=== PATIENT | male | born 1970 | race Caucasian/White ===

== ENCOUNTER 2017-06-04 06:55 | Emergency (ER) | payer OTHER ==
[2017-06-04] MEDS ORDERED: SODIUM CHLORIDE 0.9% 1,000 ML IV ONE (07:18)
[2017-06-04] MEDS ORDERED: KETOROLAC 60 MG/2 ML VIAL IVP STA (07:18)
--- NOTE | 2017-06-04 07:20 | ED Physician Documentation ---
History of Present Illness - Stated complaint Stated Complaint: SIDE PX - Chief complaint Chief Complaint: Abd Pain - Additonal information Additional information: hx from pt 47 male hx renal colic L flank pain rad to LLQ with hematuria just like prior renal colic no fever chills no NV Review of Systems Constitutional: denies: Fever, Chills Cardiac: denies: Chest pain / pressure Respiratory: denies: Dyspnea GI: reports: Abdominal Pain (LLL rad from flank). denies: Nausea, Vomiting : reports: Hematuria Musculoskeletal: reports: Back pain (L flank) Endocrine: denies: Easy bruising / bleeding Immunocompromised: denies: Immunocompromised PD PAST MEDICAL HISTORY - Present Medications Home Medications: Ambulatory Orders Medication Instructions Recorded Confirmed Ibuprofen [Motrin] 400 mg PO Q6H PRN #30 tablet 06/04/17 Oxycodone HCl/Acetaminophen 1 each PO Q6HR PRN #10 tablet 06/04/17 [Percocet 5-325 mg Tablet] Tamsulosin [Flomax] 0.4 mg PO DAILY #7 capsule 06/04/17 rOPINIRole [Requip] 1 tab PO DAILY 06/04/17 06/04/17 - Allergies Allergies/Adverse Reactions: Allergies Allergy/AdvReac Type Severity Reaction Status Date / Time No Known Drug Allergies Allergy Verified 06/04/17 07:01 PD ED PE NORMAL - Vitals Vital signs reviewed: Yes - General General: Alert and oriented X 3 - HEENT HEENT: PERRL - Neck Neck: Supple, no meningeal sign - Cardiac Cardiac: RRR - Respiratory Respiratory: No respiratory distress, Clear bilaterally - Abdomen Abdomen: Soft, Non tender, Other (no pulsatile mass) - Back Back: No CVA TTP (palpating does not change pain) - Neuro Neuro: Alert and oriented X 3 Results - Vitals Vitals: Vital Signs - 24 hr 06/04/17 06/04/17 06:57 09:00 Temperature 36.1 C L Heart Rate 62 50 L Respiratory 18 12 Rate Blood Pressure 131/90 H 114/76 O2 Saturation 100 100 Oxygen O2 Source Room air - Labs Labs: Laboratory Tests 06/04/17 06/04/17 07:35 07:38 Sodium 136 Potassium 3.7 Chloride 103 Carbon Dioxide 27 Anion Gap 6.0 BUN 26 H Creatinine 0.9 Estimated GFR (MDRD) 91 Glucose 118 H Calcium 9.2 Urine Color YELLOW Urine Clarity HAZY Urine pH 7.0 Ur Specific [place] <=1.005 Urine Protein NEGATIVE Urine Glucose (UA) NEGATIVE Urine Ketones NEGATIVE Urine Occult Blood LARGE H Urine Nitrite NEGATIVE Urine Bilirubin NEGATIVE Urine Urobilinogen 0.2 (NORMAL) Ur Leukocyte Esterase NEGATIVE Urine RBC 11-25 H Urine WBC 0-3 Ur Squamous Epith Cells NONE SEEN Urine Bacteria Rare Ur Microscopic Review INDICATED Urine Culture Comments NOT INDICATED - Rads (name of study) KUB Radiology: See rad report (4 mm L distal ureteral stone) Departure - Departure Disposition: Home, Self Care Clinical Impression: Renal colic on left side Condition: Good Instructions: ED Stone Renal W Colic Follow-Up: FAITH WANG [Primary Care Provider] - Prescriptions: Oxycodone HCl/Acetaminophen [Percocet 5-325 mg Tablet] 1 each PO Q6HR PRN #10 tablet PRN Reason: Severe Pain Ibuprofen [Motrin] 400 mg PO Q6H PRN #30 tablet PRN Reason: Pain Tamsulosin [Flomax] 0.4 mg PO DAILY #7 capsule Comments: The urine shows blood but no infection The kidney function is fine The xray shows a 4 mm stone that is almost to the bladder It is OK for you to go home - the stone is small enough that it should pass on its own I have prescribed medication to ease the pain and help relax the ureters Please drink plenty of fluids Filter the urine so you know when the stone has passed Return if worse (fever, vomiting, cannot urinate, extreme pain etc) Forms: Activity restrictions
[2017-06-04 07:59] LABS: CALCIUM 9.2 mg/dL (8.5-10.3); CREATININE 0.9 mg/dL (0.6-1.2)
[2017-06-04 08:07] LABS: BILIRUBIN,URINE NEGATIVE (NEGATIVE); GLUCOSE, URINE (UA) NEGATIVE (NEGATIVE); KETONES,URINE (UA) NEGATIVE (NEGATIVE); LEUKOCYTE ESTERASE, URINE NEGATIVE (NEGATIVE); NITRITE,URINE NEGATIVE (NEGATIVE); OCCULT BLOOD,URINE LARGE (NEGATIVE); PROTEIN,URINE NEGATIVE (NEGATIVE); UROBILINOGEN,URINE 0.2 (NORMAL) E.U./dL (NORMAL)
[2017-06-04 08:14] LABS: CLARITY,URINE HAZY (CLEAR)
[2017-06-04 08:26] LABS: BACTERIA,URINE Rare /HPF (None Seen); SQUAMOUS EPITHELIAL CELL,UR NONE SEEN (<= Few)
--- NOTE | 2017-06-04 08:33 | XRAY Report ---
EXAM: ABDOMEN RADIOGRAPHY EXAM DATE: 06/04/2017 08:08 AM. CLINICAL HISTORY: L flank pain hx kidney stones. COMPARISON: None. TECHNIQUE: 1 view. FINDINGS: Bowel Gas Pattern: Prominent hepatic flexure stool. No dilated bowel. Other: A 4 mm left pelvic calcification is suspicious for distal ureteral stone. IMPRESSION: 1. A 4 mm left pelvic calcification is suspicious for distal ureteral stone. [facility] Referring Provider Line: [phone] SITE ID: [id number]
[2017-06-04 09:00] VITALS: BP 114/76
== END 2017-06-04 09:49 | disposition home or self-care (01) ==
LOC: ED 06:55
DX: N20.2 Calculus of kidney with calculus of ureter (principal)
CPT/HCPCS: 36415; 74018; 80048; 81001; 81003; 87086; 96360; 96361; 96374; 99283; 99284

== ENCOUNTER 2018-02-18 19:21 | Emergency (ER) | payer OTHER ==
[2018-02-18] MEDS ORDERED: ONDANSETRON 4 MG/2 ML VIAL IVP STA (21:31)
[2018-02-18] MEDS ORDERED: SODIUM CHLORIDE 0.9% 1,000 ML IV ONE (21:32)
[2018-02-18 21:37] LABS: BILIRUBIN,URINE NEGATIVE (NEGATIVE); GLUCOSE, URINE (UA) NEGATIVE (NEGATIVE); KETONES,URINE (UA) NEGATIVE (NEGATIVE); LEUKOCYTE ESTERASE, URINE NEGATIVE (NEGATIVE); NITRITE,URINE NEGATIVE (NEGATIVE); OCCULT BLOOD,URINE LARGE (NEGATIVE); PROTEIN,URINE NEGATIVE (NEGATIVE); UROBILINOGEN,URINE 1 (NORMAL) E.U./dL (NORMAL)
[2018-02-18 21:43] LABS: BASOPHILS # (AUTO) 0.1 10^3/uL (0.0-0.1); BASOPHILS % (AUTO) 0.5 %; EOSINOPHILS # (AUTO) 0.1 10^3/uL (0.0-0.7); EOSINOPHILS % (AUTO) 1.1 %; HGB - HEMOGLOBIN 14.8 g/dL (14.0-18.0); LYMPHOCYTES # (AUTO) 2.1 10^3/uL (1.5-3.5); LYMPHOCYTES % (AUTO) 16.3 %; MEAN CORPUSCULAR HEMOGLOBIN 31.9 pg (27.0-31.0); MEAN CORPUSCULAR VOLUME 88.6 fL (80.0-94.0); MEAN PLATELET VOLUME 8.2 fL (7.4-11.4); MONOCYTES # (AUTO) 1.2 10^3/uL (0.0-1.0); MONOCYTES % (AUTO) 9.7 %; NEUTROPHILS # (AUTO) 9.3 10^3/uL (1.5-6.6); NEUTROPHILS % (AUTO) 72.4 %; PLT - PLATELET COUNT 287 10^3/uL (130-450); RED BLOOD COUNT 4.63 10^6/uL (4.70-6.10); RED CELL DISTRIBUTION WIDTH 12.4 % (12.0-15.0); WHITE BLOOD COUNT 12.8 x10^3/uL (4.8-10.8)
--- NOTE | 2018-02-18 21:43 | ED Physician Documentation ---
PD HPI ABD PAIN - Stated complaint Stated Complaint: BACK & SIDE PX - Chief complaint Chief Complaint: Abd Pain - History obtained from History obtained from: Patient - History of Present Illness Timing - onset: Enter time (17:00), Today Timing - duration: Hours Timing - details: Abrupt onset, Constant, Waxing and waning Pain level now: 10 Quality: Pain Location: LUQ Radiation: Left flank Improved by: Other (nothing) Worsened by: Other (no exacerbating factors) Associated symptoms: Nausea, Vomiting. No: Diarrhea, Constipation Similar symptoms before: Diagnosis (similar to previous renal colic) Recently seen: Not recently seen Review of Systems Constitutional: reports: Sweats. denies: Fever, Chills Cardiac: reports: Reviewed and negative Respiratory: reports: Reviewed and negative GI: reports: Abdominal Pain, Nausea, Vomiting. denies: Constipation, Diarrhea : denies: Dysuria, Frequency, Hematuria Musculoskeletal: reports: Back pain PD PAST MEDICAL HISTORY - Past Medical History Past Medical History: Yes : Kidney stones - Past Surgical History Past Surgical History: No - Present Medications Home Medications: Ambulatory Orders Medication Instructions Recorded Confirmed Ibuprofen [Motrin] 400 mg PO Q6H PRN #30 tablet 06/04/17 02/18/18 Gabapentin 100 mg PO DAILY 02/18/18 02/18/18 Tamsulosin [Flomax] 0.4 mg PO DAILY #7 capsule 02/18/18 oxyCODONE/ACET 5/325 [Percocet 5 1 - 2 each PO Q6H PRN #14 tablet 02/18/18 mg/325 mg] - Allergies Allergies/Adverse Reactions: Allergies Allergy/AdvReac Type Severity Reaction Status Date / Time No Known Drug Allergies Allergy Verified 02/18/18 19:34 - Social History Does the pt smoke?: No Smoking Status: Never smoker Does the pt drink ETOH?: Yes Does the pt have substance abuse?: No PD ED PE NORMAL - Vitals Vital signs reviewed: Yes - General General: Alert and oriented X 3, Well developed/nourished, Other (obvious severe painful distress) - HEENT HEENT: Moist mucous membranes - Cardiac Cardiac: RRR, No murmur - Respiratory Respiratory: No respiratory distress, Clear bilaterally - Abdomen Abdomen: Normal bowel sounds, Soft, Non tender, Non distended - Back Back: No CVA TTP - Derm Derm: Normal color, Warm and dry Results - Vitals Vitals: Vital Signs - 24 hr 02/18/18 02/18/18 02/18/18 19:31 21:32 21:54 Temperature 36.5 C 37.2 C Heart Rate 56 L 87 71 Respiratory 17 20 18 Rate Blood Pressure 186/93 H 182/143 H 166/88 H O2 Saturation 100 93 100 02/18/18 02/19/18 22:36 00:10 Temperature Heart Rate 70 72 Respiratory 15 16 Rate Blood Pressure 138/78 H 120/74 O2 Saturation 99 95 Oxygen O2 Source Room air - Labs Labs: Laboratory Tests 02/18/18 02/18/18 02/18/18 19:45 21:30 21:30 WBC 12.8 H RBC 4.63 L Hgb 14.8 Hct 41.0 L MCV 88.6 MCH 31.9 H MCHC 36.0 RDW 12.4 Plt Count 287 MPV 8.2 Neut # (Auto) 9.3 H Lymph # (Auto) 2.1 [place] # (Auto) 1.2 H Eos # (Auto) 0.1 Baso # (Auto) 0.1 Absolute Nucleated RBC 0.01 Nucleated RBC % 0.0 Sodium 137 Potassium 3.7 Chloride 101 Carbon Dioxide 22 Anion Gap 14.0 H BUN 27 H Creatinine 1.1 Estimated GFR (MDRD) 72 L Glucose 126 H Calcium 9.9 Total Bilirubin 1.1 H AST 36 ALT 42 Alkaline Phosphatase 57 Total Protein 8.4 H Albumin 4.9 Globulin 3.5 Albumin/Globulin Ratio 1.4 Lipase 25 Urine Color YELLOW Urine Clarity CLOUDY Urine pH 7.0 Ur Specific [place] 1.020 Urine Protein NEGATIVE Urine Glucose (UA) NEGATIVE Urine Ketones NEGATIVE Urine Occult Blood LARGE H Urine Nitrite NEGATIVE Urine Bilirubin NEGATIVE Urine Urobilinogen 1 (NORMAL) Ur Leukocyte Esterase NEGATIVE Urine RBC TNTC H Urine WBC 0-3 Ur Squamous Epith Cells NONE SEEN Urine Bacteria None Seen Urine Mucus Moderate Strands Ur Microscopic Review INDICATED Urine Culture Comments NOT INDICATED - Rads (name of study) CT A/P Radiology: Prelim report reviewed, See rad report PD MEDICAL DECISION MAKING - ED course Complexity details: reviewed old records, reviewed results, re-evaluated patient, considered differential, d/w patient Departure - Departure Disposition: 01 Home, Self Care Clinical Impression: Renal colic on left side Condition: Good Instructions: ED Stone Renal W Colic Follow-Up: FAITH WANG [Primary Care Provider] - Prescriptions: oxyCODONE/ACET 5/325 [Percocet 5 mg/325 mg] 1 - 2 each PO Q6H PRN #14 tablet PRN Reason: Pain Tamsulosin [Flomax] 0.4 mg PO DAILY #7 capsule Forms: Activity restrictions Discharge Date/Time: 02/19/18 00:30
[2018-02-18 21:45] LABS: BACTERIA,URINE None Seen /HPF (None Seen); CLARITY,URINE CLOUDY (CLEAR); MUCUS,URINE Moderate Strands; RBC,URINE TNTC /HPF (0-5); SQUAMOUS EPITHELIAL CELL,UR NONE SEEN (<= Few)
[2018-02-18] MEDS ORDERED: LIDOCAINE MPF 2% IV STA (21:48)
[2018-02-18] MEDS ORDERED: SODIUM CHLORIDE 0.9% IV STA (21:48)
[2018-02-18] MEDS ORDERED: HYDROmorphone 1 MG/ML CARPUJECT IVP STA (21:48)
[2018-02-18 21:51] LABS: ALBUMIN 4.9 g/dL (3.2-5.5); ALBUMIN/GLOBULIN RATIO 1.4 (1.0-2.2); BILIRUBIN,TOTAL 1.1 mg/dL (0.2-1.0); CALCIUM 9.9 mg/dL (8.5-10.3); CREATININE 1.1 mg/dL (0.6-1.2); TOTAL PROTEIN 8.4 g/dL (6.7-8.2)
--- NOTE | 2018-02-18 23:24 | CT Report ---
Reason: left flank pain Procedure Date: 02/18/2018 Accession Number: [id number] / [id number] Procedure: CT - Abdomen/Pelvis W/O CPT Code: FULL RESULT: EXAM: CT ABDOMEN AND PELVIS (CT KUB) EXAM DATE: 02/18/2018 11:10 PM. CLINICAL HISTORY: Left flank pain. COMPARISONS: None. TECHNIQUE: Routine axial helical CT imaging was performed through the abdomen and pelvis without IV contrast. Reconstructions: Coronal and sagittal. In accordance with CT protocol optimization, one or more of the following dose reduction techniques were utilized for this exam: automated exposure control, adjustment of mA and/or KV based on patient size, or use of iterative reconstructive technique. FINDINGS: Lung Bases: Unremarkable. Right Kidney/Ureter: No stones, hydronephrosis, or hydroureter. No perinephric fat stranding. Left Kidney/Ureter: Mild left hydronephrosis and hydroureter, with a 3 mm calculus at the left ureterovesicular junction. 2 mm left upper tract calculus. Other Solid Organs: Noncontrast images of the solid organs are grossly unremarkable. Gallbladder/Bile Ducts: Unremarkable. Peritoneal Cavity: No free fluid, free air or karen adenopathy. Bowel is grossly unremarkable. The appendix is normal. Pelvic Organs: No bladder stones or wall thickening. Noncontrast images of the visualized pelvic organs are unremarkable. Vasculature: Unremarkable. Other: None. IMPRESSION: 3 mm calculus in the distal left ureter, producing mild hydronephrosis and hydroureter. 2 mm calculus in the left collecting system. [facility]
[2018-02-18] MEDS ORDERED: KETOROLAC 60 MG/2 ML VIAL IVP STA (23:57)
[2018-02-18] MEDS ORDERED: TAMSULOSIN 0.4 MG CAPSULE PO STA (23:57)
[2018-02-18] MEDS ORDERED: oxyCODONE/ACET 5/325 Prepack 4 PO STA (23:57)
[2018-02-19 00:12] VITALS: BP 120/74
== END 2018-02-19 00:30 | disposition home or self-care (01) ==
LOC: ED 19:21
DX: N13.2 Hydronephrosis with renal and ureteral calculous obstruction (principal)
CPT/HCPCS: 36415; 74176; 80053; 81001; 83690; 85025; 96361; 96365; 96375; 99283; 99284; A9270; J1170; J7040; 81003; 87086

== ENCOUNTER 2018-05-17 03:56 | Emergency (ER) | payer OTHER ==
[2018-05-17] MEDS ORDERED: KETOROLAC 15 MG/ML VIAL IVP STA (04:03)
[2018-05-17] MEDS ORDERED: ONDANSETRON 4 MG/2 ML VIAL IVP STA (04:03)
[2018-05-17] MEDS ORDERED: SODIUM CHLORIDE 0.9% 1,000 ML IV ONE (04:03)
[2018-05-17] MEDS ORDERED: HYDROmorphone 1 MG/ML CARPUJECT IM STA (04:10)
[2018-05-17] MEDS ORDERED: LORazepam 2 MG/ML VIAL IVP STA (04:10)
[2018-05-17 04:21] LABS: GLUCOSE, URINE (UA) 100 mg/dL (NEGATIVE); KETONES,URINE (UA) NEGATIVE (NEGATIVE); LEUKOCYTE ESTERASE, URINE NEGATIVE (NEGATIVE); NITRITE,URINE POSITIVE (NEGATIVE); OCCULT BLOOD,URINE LARGE (NEGATIVE); PH,URINE 6.5 PH (5.0-7.5); PROTEIN,URINE >=300 mg/dL (NEGATIVE); UROBILINOGEN,URINE 2 E.U./dL (NORMAL)
[2018-05-17 04:23] LABS: BILIRUBIN,URINE NEGATIVE (NEGATIVE); CLARITY,URINE CLEAR (CLEAR); ICTOTEST,URINE NEGATIVE
[2018-05-17] MEDS ORDERED: HYDROmorphone 1 MG/ML CARPUJECT IVP STA (04:26)
[2018-05-17 04:27] LABS: BASOPHILS # (AUTO) 0.1 10^3/uL (0.0-0.1); BASOPHILS % (AUTO) 0.5 %; EOSINOPHILS # (AUTO) 0.2 10^3/uL (0.0-0.7); EOSINOPHILS % (AUTO) 1.5 %; HGB - HEMOGLOBIN 15.4 g/dL (14.0-18.0); LYMPHOCYTES # (AUTO) 3.8 10^3/uL (1.5-3.5); MEAN CORPUSCULAR HEMOGLOBIN 31.5 pg (27.0-31.0); MEAN CORPUSCULAR HGB CONC 34.5 g/dL (32.0-36.0); MEAN CORPUSCULAR VOLUME 91.5 fL (80.0-94.0); MEAN PLATELET VOLUME 7.6 fL (7.4-11.4); MONOCYTES # (AUTO) 1.3 10^3/uL (0.0-1.0); MONOCYTES % (AUTO) 10.7 %; NEUTROPHILS # (AUTO) 6.6 10^3/uL (1.5-6.6); NEUTROPHILS % (AUTO) 55.3 %; PLT - PLATELET COUNT 288 10^3/uL (130-450); RED BLOOD COUNT 4.87 10^6/uL (4.70-6.10); RED CELL DISTRIBUTION WIDTH 12.1 % (12.0-15.0); WHITE BLOOD COUNT 11.9 x10^3/uL (4.8-10.8)
[2018-05-17 04:30] LABS: BACTERIA,URINE None Seen /HPF (None Seen); SQUAMOUS EPITHELIAL CELL,UR NONE SEEN (<= Few)
[2018-05-17 04:36] LABS: ALBUMIN 4.6 g/dL (3.2-5.5); ALBUMIN/GLOBULIN RATIO 1.4 (1.0-2.2); BILIRUBIN,TOTAL 0.9 mg/dL (0.2-1.0); CALCIUM 9.2 mg/dL (8.5-10.3); CREATININE 1.1 mg/dL (0.6-1.2)
--- NOTE | 2018-05-17 04:56 | CT Report ---
Reason: left flank pain Procedure Date: 05/17/2018 Accession Number: [id number] / [id number] Procedure: CT - KUB CPT Code: FULL RESULT: EXAM: CT ABDOMEN AND PELVIS (CT KUB) EXAM DATE: 05/17/2018 04:47 AM. CLINICAL HISTORY: Left flank pain. COMPARISONS: ABDOMEN/PELVIS W/O 02/18/2018 11:02 PM. TECHNIQUE: Routine axial helical CT imaging was performed through the abdomen and pelvis without IV contrast. Reconstructions: Coronal and sagittal. In accordance with CT protocol optimization, one or more of the following dose reduction techniques were utilized for this exam: automated exposure control, adjustment of mA and/or KV based on patient size, or use of iterative reconstructive technique. FINDINGS: Lung Bases: Trace effusions. Right Kidney/Ureter: Tiny nonobstructing stone. No ureteral stones, hydronephrosis, or hydroureter. No perinephric fat stranding. Left Kidney/Ureter: Mild left hydroureteronephrosis to the level of the urinary bladder. No ureteral stone seen. There is a tiny nonobstructing left renal stone. Other Solid Organs: Noncontrast images of the solid organs are grossly unremarkable. Gallbladder/Bile Ducts: Unremarkable. Peritoneal Cavity: No free fluid, free air or karen adenopathy. Bowel is grossly unremarkable. Pelvic Organs: No bladder stones or wall thickening. Noncontrast images of the visualized pelvic organs are unremarkable. Vasculature: Unremarkable. Other: None. IMPRESSION: 1. Mild left hydroureteronephrosis to the level of the urinary bladder without obstructing stone seen. Patient may have recently passed a left-sided stone. Differential would include tiny nonvisualized UVJ stone and less likely urinary tract infection. 2. Tiny bilateral nonobstructing renal stones. [facility]
--- NOTE | 2018-05-17 05:17 | ED Physician Documentation ---
PD HPI ABD PAIN - Stated complaint Stated Complaint: LT FLANK PAIN - Chief complaint Chief Complaint: Abd Pain - History obtained from History obtained from: Patient, Family - History of Present Illness Timing - onset: Today Timing - details: Abrupt onset Severity Comments: severe Quality: Cramping, Sharp Location: Other (left flank) Radiation: Other (LLQ) Improved by: Other (nothing) Associated symptoms: Nausea. No: Fever, Vomiting, Diarrhea Similar symptoms before: Other (Similar to prior episodes of kidney stones in the past) Review of Systems Constitutional: denies: Fever, Chills Eyes: denies: Discharge Ears: denies: Ear pain Nose: denies: Congestion Throat: denies: Sore throat Cardiac: denies: Chest pain / pressure Respiratory: denies: Cough GI: reports: Abdominal Pain : denies: Dysuria Skin: denies: Lesions Musculoskeletal: denies: Back pain Neurologic: denies: Generalized weakness PD PAST MEDICAL HISTORY - Past Medical History : Kidney stones Musculoskeletal: Chronic back pain - Past Surgical History Past Surgical History: No - Present Medications Home Medications: Ambulatory Orders Medication Instructions Recorded Confirmed Ibuprofen [Motrin] 400 mg PO Q6H PRN #30 tablet 06/04/17 02/18/18 Gabapentin 100 mg PO DAILY 02/18/18 02/18/18 Tamsulosin [Flomax] 0.4 mg PO DAILY #7 capsule 02/18/18 oxyCODONE/ACET 5/325 [Percocet 5 1 - 2 each PO Q6H PRN #14 tablet 02/18/18 mg/325 mg] - Allergies Allergies/Adverse Reactions: Allergies Allergy/AdvReac Type Severity Reaction Status Date / Time No Known Drug Allergies Allergy Verified 02/18/18 19:34 - Social History Does the pt smoke?: No Smoking Status: Never smoker Does the pt drink ETOH?: Yes Does the pt have substance abuse?: No - Immunizations Immunizations are current?: Yes - POLST Patient has POLST: No PD ED PE NORMAL - General General: Alert and oriented X 3. No: No acute distress (The patient is an significant amount discomfort) - HEENT HEENT: Atraumatic, PERRL, EOMI, Ears normal, Moist mucous membranes - Cardiac Cardiac: RRR, Strong equal pulses - Respiratory Respiratory: No respiratory distress - Abdomen Abdomen: Soft, Non distended. No: Non tender (The patient has tenderness to palpation in the left flank and left upper abdomen) - Back Back: No: No CVA TTP (Left flank pain) - Derm Derm: Normal color - Extremities Extremities: No deformity - Neuro Neuro: Alert and oriented X 3, Normal speech - Psych Psych: Normal affect Results - Vitals Vitals: Vital Signs - 24 hr 05/17/18 03:59 Temperature 36.2 C L Heart Rate 64 Respiratory 22 Rate Blood Pressure 172/88 H O2 Saturation 100 Oxygen O2 Source Room air - Labs Labs: Laboratory Tests 05/17/18 05/17/18 05/17/18 04:12 04:12 04:12 WBC 11.9 H RBC 4.87 Hgb 15.4 Hct 44.6 MCV 91.5 MCH 31.5 H MCHC 34.5 RDW 12.1 Plt Count 288 MPV 7.6 Neut # (Auto) 6.6 Lymph # (Auto) 3.8 H [place] # (Auto) 1.3 H Eos # (Auto) 0.2 Baso # (Auto) 0.1 Absolute Nucleated RBC 0.01 Nucleated RBC % 0.1 Sodium 138 Potassium 3.6 Chloride 101 Carbon Dioxide 26 Anion Gap 11.0 BUN 24 H Creatinine 1.1 Estimated GFR (MDRD) 72 L Glucose 123 H Calcium 9.2 Total Bilirubin 0.9 AST 21 ALT 25 Alkaline Phosphatase 50 Total Protein 8.0 Albumin 4.6 Globulin 3.4 Albumin/Globulin Ratio 1.4 Lipase 28 Urine Color YELLOW Urine Clarity CLEAR Urine pH 6.5 Ur Specific [place] >=1.030 H Urine Protein >=300 Urine Glucose (UA) 100 H Urine Ketones NEGATIVE Urine Occult Blood LARGE H Urine Nitrite POSITIVE H Urine Bilirubin NEGATIVE Urine Urobilinogen 2 H Ur Leukocyte Esterase NEGATIVE Urine RBC 6-10 H Urine WBC 6-10 H Ur Squamous Epith Cells NONE SEEN Urine Bacteria None Seen Ur Microscopic Review INDICATED Urine Culture Comments INDICATED - Rads (name of study) KUB CT Radiology: Final report received, See rad report (1. Mild left hydroureteronephrosis to the level of the urinary bladder 1. Mild left hydro ureteronephrosis to the level of the urinary bladder ) PD MEDICAL DECISION MAKING - ED course ED course: On reevaluation the patient is resting comfortably and has no more symptoms. It appears based on the CT scan that the patient most likely has passed a kidney stone. Presently, the patient appears appropriate for discharge and outpatient follow-up with his urologist Dr. Schwarz. I discussed warning signs and recommended returning to the emergency department for any worsening or any concerns Departure - Departure Disposition: 01 Home, Self Care Clinical Impression: Kidney stone on left side, Acute flank pain Condition: Good Instructions: Kidney Stones Identify, Kidney Stones Prevent, ED Stone Renal Passed Follow-Up: Chacho Schwarz DO [Physician No Access] - As Needed Comments: Please return to the emergency department for worsening symptoms or any concerns
[2018-05-17 05:46] VITALS: BP 144/76
== END 2018-05-17 05:46 | disposition home or self-care (01) ==
LOC: ED 03:56
DX: N13.2 Hydronephrosis with renal and ureteral calculous obstruction (principal)
CPT/HCPCS: 36415; 74176; 80053; 81001; 83690; 85025; 87086; 96361; 96374; 96375; 99283; J1170; J2060; 81003

== ENCOUNTER 2022-01-12 16:55 | Emergency (ER) | payer OTHER ==
--- NOTE | 2022-01-12 17:20 | XRAY Report ---
PROCEDURE: Ankle 3 View RT INDICATIONS: Trauma TECHNIQUE: 3 views of the ankle were acquired. COMPARISON: None FINDINGS: Bones: No fractures or dislocations. Ankle mortise is normally aligned. No suspicious bony lesions . Soft tissues: No tibiotalar joint effusion. Achilles tendon appears normal. IMPRESSION: Unremarkable right ankle radiographs Reviewed by: Israel Royal MD on 01/12/2022 4:18 PM AKANIL Approved by: Israel Royal MD on 01/12/2022 4:18 PM AKDT Station ID: [id number]
--- NOTE | 2022-01-12 17:52 | ED Physician Documentation ---
PD HPI LOWER EXT INJURY - Stated complaint Stated Complaint: R ANKLE PX - Chief complaint Chief Complaint: Trauma Ext - History obtained from History obtained from: Patient - Additional information Additional information: The patient comes to the emergency department with chief complaint of right ankle pain after jumping out of his truck and rolling his ankle. The patient states he waited an hour to see if it would feel better but it never did. He states it hurts to bear weight. No other injuries. Review of Systems Ten Systems: 10 systems reviewed and negative Constitutional: reports: Reviewed and negative Eyes: reports: Reviewed and negative Ears: reports: Reviewed and negative Nose: reports: Reviewed and negative Throat: reports: Reviewed and negative Cardiac: reports: Reviewed and negative Respiratory: reports: Reviewed and negative GI: reports: Reviewed and negative : reports: Reviewed and negative Skin: reports: Reviewed and negative Musculoskeletal: reports: Joint pain, Joint swelling, Pain with weight bearing Neurologic: reports: Reviewed and negative Psychiatric: reports: Reviewed and negative Endocrine: reports: Reviewed and negative Immunocompromised: reports: Reviewed and negative PD PAST MEDICAL HISTORY - Past Medical History : Kidney stones Musculoskeletal: Chronic back pain - Past Surgical History Past Surgical History: No - Present Medications Home Medications: Ambulatory Orders Medication Instructions Recorded Confirmed Gabapentin 100 mg PO DAILY 02/18/18 01/12/22 - Allergies Allergies/Adverse Reactions: Allergies Allergy/AdvReac Type Severity Reaction Status Date / Time No Known Drug Allergies Allergy Verified 01/12/22 17:01 - Social History Does the pt smoke?: No Smoking Status: Never smoker Does the pt drink ETOH?: Yes Does the pt have substance abuse?: No - Immunizations Immunizations are current?: Yes - POLST Patient has POLST: No PD ED PE NORMAL - Vitals Vital signs reviewed: Yes - General General: Alert and oriented X 3, No acute distress, Well developed/nourished - HEENT HEENT: Atraumatic, PERRL, EOMI, Moist mucous membranes - Neck Neck: Supple, no meningeal sign - Cardiac Cardiac: Strong equal pulses - Respiratory Respiratory: No respiratory distress - Derm Derm: Normal color, Warm and dry, No rash - Extremities Extremities: No deformity, Other (Moderate edema over anterior talofibular ligament distribution. 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 He was placed in [employer] and given a pair of crutches. We have discussed symptomatic management at home and the usual indications for return. Departure - Departure Disposition: 01 Home, Self Care Clinical Impression: Right ankle sprain Qualifiers: Encounter type: initial encounter Involved ligament of ankle: anterior talofibular ligament Qualified Code(s): S93.491A - Sprain of other ligament of right ankle, initial encounter Condition: Stable Instructions: ED Sprain Ankle Comments: You may use ibuprofen and Tylenol to help with discomforts. You may also apply ice and elevate your foot. You may bear weight as tolerated, but please use the splint and crutches for as long as you need. If you feel that you are not noticing any improvement whatsoever after 2 weeks then please make an appointment to follow-up with your primary care physician.
[2022-01-12 18:05] VITALS: BP 137/72
== END 2022-01-12 18:09 | disposition home or self-care (01) ==
LOC: ED 16:55
DX: S93.491A Sprain of other ligament of right ankle, initial encounter (principal); X50.1XXA Overexertion from prolonged static or awkward postures, initial encounter; Y93.39 Activity, other involving climbing, rappelling and jumping off; Y92.812 Truck as the place of occurrence of the external cause
CPT/HCPCS: 99282; 99283